=== PATIENT | female | born 1980 | race Caucasian/White ===

== ENCOUNTER 2018-03-13 19:13 | Emergency (ER) | payer MEDICAID ==
[2018-03-13 19:13] VITALS: BMI 50.1
[2018-03-13 19:21] VITALS: BP 106/71; PULSE 90; RESP 16; TEMP 97.9; O2SAT 100
--- NOTE | 2018-03-13 20:16 | ED PDOC ---
Lower Extremity Pain/Injury Time Seen by Provider: 03/13/18 19:21 Chief Complaint (Nursing): Lower Extremity Problem/Injury Chief Complaint (Provider): Lower Extremity Problem/Injury History Per: Patient History/Exam Limitations: no limitations Onset/Duration Of Symptoms: Days Current Symptoms Are (Timing): Still Present Additional Complaint(s): 38 y/o female presents to the ED with left knee pain. Patient states she was diagnosed with a cyst along with an ACL and MCL tear to the left knee. She has an appointment on 03/28/2018 with a orthopedist. Patient stood up from a seated position when she felt immediate pain and a release of fluid in the left knee. She complains of constant pain and became worse after standing. Patient has tried to keep it immobilized and rest it but hasn't been able to constantly. Denies any fever, blunt trauma, CP, SOB, or a history of DVT or PE. PMD: Sussy Magallon Past Medical History Reviewed: Historical Data, Nursing Documentation, Vital Signs Vital Signs: Last Vital Signs Temp 97.9 F 03/13/18 19:17 Pulse 90 03/13/18 19:17 Resp 16 03/13/18 19:17 BP 106/71 03/13/18 19:17 Pulse Ox 100 03/13/18 19:17 - Medical History PMH: Anemia, Anxiety, Depression - Surgical History Surgical History: Cholecystectomy - Family History Family History: States: No Known Family Hx - Immunization History Hx Tetanus Toxoid Vaccination: No Hx Influenza Vaccination: No Hx Pneumococcal Vaccination: No - Home Medications Home Medications: Ambulatory Orders Medication Instructions Recorded Tramadol HCl [Ultram] 50 mg PO BID PRN #5 tablet 03/13/18 - Allergies Allergies/Adverse Reactions: Allergies Allergy/AdvReac Type Severity Reaction Status Date / Time morphine Allergy RASH Verified 03/13/18 19:17 Review of Systems ROS Statement: Except As Marked, All Systems Reviewed And Found Negative Constitutional: Negative for: Fever, Other (no blunt trauma) Cardiovascular: Negative for: Chest Pain Respiratory: Negative for: Shortness of Breath Musculoskeletal: Positive for: Leg Pain (left knee), Other Physical Exam - Reviewed Nursing Documentation Reviewed: Yes Vital Signs Reviewed: Yes - Physical Exam Appears: Positive for: No Acute Distress Head Exam: Positive for: ATRAUMATIC, NORMAL INSPECTION, NORMOCEPHALIC Skin: Positive for: Normal Color Eye Exam: Positive for: EOMI, Normal appearance, PERRL Neck: Positive for: Normal Cardiovascular/Chest: Positive for: Regular Rate, Rhythm Respiratory: Positive for: CNT, Normal Breath Sounds Pulses-Dorsalis Pedis (L): 2+ Pulses-Dorsalis Pedis (R): 2+ Back: Positive for: Normal Inspection Extremity: Positive for: Normal ROM (actively for left knee), Calf Tenderness ( swelling to left knee extending to medial left calf), Other (LLE moderate tenderness) Neurologic/Psych: Positive for: Alert, Oriented (x3) - ECG O2 Sat by Pulse Oximetry: 100 (RA) Pulse Ox Interpretation: Normal - Radiology X-Ray: Interpreted by Me (L knee x-ray) X-Ray Interpretation: No Acute Disease - Progress ED Course And Treament: Duplex LLE vein: No DVT Knee immobilized in immobilizer applied by RN. Crutches given. Medical Decision Making Medical Decision Making: Time: 19:17 Impression: Knee pain Plan: * Left knee x-ray * Toradol 60 mg IM * Ultram 50 mg PO * Crutches * Ultrasound Scribe Attestation: Documented by Ananya Jha acting as a scribe for Jaime Bermudez PA-C. MD Scribe Attestation: All medical record entries made by the Scribe were at my direction and personally dictated by me. I have reviewed the chart and agree that the record accurately reflects my personal performance of the history, physical exam, medical decision making, and the department course for this patient. I have also personally directed, reviewed, and agree with the discharge instructions and disposition. Disposition - Clinical Impression Clinical Impression: Knee pain - Patient ED Disposition Is Patient to be Admitted: No - Disposition Referrals: Jocelyne Mata [Outside] Disposition: Routine/Home Disposition Time: 21:15 Condition: STABLE Additional Instructions: Follow up with your orthopedist as scheduled without fail Return to ED immediately if symptoms worsen. Prescriptions: Tramadol HCl [Ultram] 50 mg PO BID PRN #5 tablet PRN Reason: Other Instructions: Knee Pain (DC) Forms: [employer] (Icelandic) Print Language: MACANESE
--- NOTE | 2018-03-13 20:54 | US ---
EXAM: US Duplex Left Lower Extremity Veins EXAM DATE/TIME: 03/13/2018 7:29 PM CLINICAL HISTORY: 38 years old, female; Pain and signs and symptoms; Swelling of limb; Lower extremity, left; Leg, lower; Additional info: Pain and swelling TECHNIQUE: Real-time duplex ultrasound scan of the left lower extremity veins integrating B-mode two-dimensional vascular structure, Doppler spectral analysis, color flow Doppler imaging and compression. COMPARISON: No relevant prior studies available. FINDINGS: Normal-appearing compressibility, flow and augmentation response are seen in the left common femoral, femoral and popliteal veins. Flow is seen in the left posterior tibial vein, in the calf. Complex cystic mass measuring 3.2 x 1.1 cm maximally in the left popliteal fossa soft tissues. This has a lobulated shape and well-defined margins, and appears partially cystic internally, also containing low level echoes. No evidence of significant associated flow/vascularity on color imaging. Most likely, this represents a Lee's cyst. IMPRESSION: No evidence of deep venous thrombosis in the left leg. 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 If there has been recent trauma, a hematoma could also have this appearance. See above for remaining findings.
--- NOTE | 2018-03-14 09:50 | RAD ---
PROCEDURE: Left Knee Radiographs. HISTORY: Pain. COMPARISON: None. FINDINGS: BONES: Normal. No fracture. JOINTS: Normal. No osteoarthritis. JOINT EFFUSION: Moderate size joint effusion OTHER FINDINGS: None. IMPRESSION: No evidence of acute displaced fracture nor dislocation. Moderate-sized suprapatellar joint exit moffett
== END 2018-03-13 21:32 | disposition home or self-care (01) ==
LOC: H.ER 19:13
DX: M25.562 Pain in left knee (principal); F32.9 Major depressive disorder, single episode, unspecified; F41.9 Anxiety disorder, unspecified
CPT/HCPCS: 29530; 73562; 81025; 93971; 96372; 99283; J1885; L1830